=== PATIENT | female | born 1985 | race Caucasian/White ===

== ENCOUNTER 2016-10-30 18:29 | Inpatient (IN) | payer MEDICAID ==
[~2016-10-30] VITALS: Ht 162.6 cm; Wt 84.9 kg
[2016-10-30 19:11] VITALS: Ht 162.6 cm; Wt 84.9 kg
[2016-10-30] MEDS ORDERED: ACETAMINOPHEN 325 MG TAB PO PRN (20:00)
[2016-10-30] MEDS ORDERED: AL HYDROX/MG HYDROX/SIMETH 30 ML CUP PO PRN (20:00)
[2016-10-30 21:09] LABS: ADD SCAN DIFF NO
[2016-10-30 21:14] LABS: BASOPHILS % 0.3 % (0.0-2.0); EOSINOPHILS # 0.1 10^3/ul (0.0-0.5); EOSINOPHILS % 0.8 % (0.0-7.0); HEMATOCRIT 31.4 % (37.0-47.0); HEMOGLOBIN 10.8 g/dl (12.0-16.0); LYMPHOCYTES # 2.3 10^3/ul (0.8-2.9); LYMPHOCYTES % 19.3 % (15.0-51.0); MEAN CORPUSCULAR HEMOGLOBIN 31.3 pg (29.0-33.0); MEAN CORPUSCULAR HGB CONC 34.4 g/dl (32.0-37.0); MEAN PLATELET VOLUME 10.4 fl (7.4-10.4); MONOCYTE # 0.9 10^3/ul (0.3-0.9); MONOCYTES % 7.9 % (0.0-11.0); NEUTROPHIL # 8.4 10^3/ul (1.6-7.5); NEUTROPHILS % 70.5 % (39.0-77.0); PLATELET COUNT 385 10^3/UL (140-415); RED BLOOD COUNT 3.45 10^6/ul (4.20-5.40); RED CELL DISTRIBUTION WIDTH 13.3 % (11.5-14.5); WHITE BLOOD COUNT 11.8 10^3/ul (4.8-10.8)
[2016-10-30 21:19] LABS: ADD UMIC YES; UR ASCORBIC ACID NEGATIVE (NEGATIVE); UR BACTERIA FEW /HPF (NONE SEEN); UR BILIRUBIN (Dip) NEGATIVE (NEGATIVE); UR BLOOD (Dip) NEGATIVE (NEGATIVE); UR CLARITY CLOUDY (CLEAR); UR COLOR AMBER (YELLOW); UR GLUCOSE (Dip) NEGATIVE (NEGATIVE); UR KETONES (Dip) NEGATIVE (NEGATIVE); UR LEUKOCYTE ESTERASE (Dip) 3+ Leu/ul (NEGATIVE); UR MUCUS MANY /HPF (NONE SEEN); UR NITRITE (Dip) POSITIVE (NEGATIVE); UR RBC 8 /HPF (0-5); UR SPECIFIC GRAVITY (Dip) 1.023 (1.003-1.030); UR SQUAMOUS EPITHELIAL CELL FEW /HPF (FEW); UR TOTAL PROTEIN (Dip) 1+ mg/dl (NEGATIVE); UR UROBILINOGEN (Dip) 1+ mg/dL (NEGATIVE); UR WBC CLUMPS FEW /HPF (NONE SEEN)
[2016-10-30 21:30] LABS: INR 1.05; PROTIME 13.7 Sec (12.2-14.2); PT RATIO 1.1
[2016-10-30 21:31] LABS: PARTIAL THROMBOPLASTIN TIME 27.4 Sec (25.0-35.0)
--- NOTE | 2016-10-30 21:31 | RADRPT ---
PROCEDURE: Obstetrical ultrasound. CLINICAL INDICATION: , evaluation. Pelvic pain. TECHNIQUE: Transabdominal sonographic images of the pelvis are obtained. COMPARISON: No prior studies are available for comparison. FINDINGS: Single intrauterine gestation. There is a cephalic presentation. Measurements were made in order to determine age. The results are as follows: BPD = 8.25 cm HC = 29.78 cm AC = 30.40 cm FL = 6.24 cm TATO = 18.0 cm Heart rate = 163 beats per minute The placenta is anterior. There is no evidence for an abruption or placenta previa. Ovaries are not visualized. IMPRESSION: Single intrauterine gestation of approximately 33 weeks 2 days by ultrasound criteria. [place] estimated weight = 2216 g; 29 percentile for gestational age of 34 weeks 0 days. RPTAT: AADD .Jean-Claude Dolan MD, Date Time Electronically viewed and signed by .Jean-Claude Dolan MD, MD on 10/30/2016 21:31 .B/
[2016-10-30 21:40] LABS: ALBUMIN/GLOBULIN RATIO 1.6; BILIRUBIN,INDIRECT 0.1 mg/dl (0-1.1); BILIRUBIN,TOTAL 0.1 mg/dl (0.2-1.3); CALCIUM 9.1 mg/dl (8.4-10.2); CREATININE 0.57 mg/dl (0.44-1.00); POTASSIUM 3.6 mmol/L (3.5-5.1); TOTAL PROTEIN 6.5 g/dl (6.1-8.1); URIC ACID 4.2 mg/dl (3.1-7.9)
[2016-10-30 21:55] LABS: FIBRIN SPLIT PRODUCT <10 ug/ml (<10)
[2016-10-30 22:14] LABS: BARBITURATES NEGATIVE (NEGATIVE)
[2016-10-30 22:15] LABS: BENZODIAZEPINES POSITIVE (NEGATIVE)
[2016-10-30 22:16] LABS: CANNABINOIDS NEGATIVE (NEGATIVE); COCAINE NEGATIVE (NEGATIVE); OPIATES NEGATIVE (NEGATIVE)
--- NOTE | 2016-10-30 22:36 | RADRPT ---
PROCEDURE: OB ultrasound for biophysical profile CLINICAL INDICATION: well being, no care. TECHNIQUE: Multiple sonographic images of the pelvis were obtained. Transabdominal view of the gr avid uterus are available for review. The images were reviewed on a PACS workstation. COMPARISON: None FINDINGS: breathing movement = 2/2 tone = 2/2 motion = 2/2 Amniotic fluid = 2/2 TATO = 18.2 cm Single live intrauterine in cephalic presentation with cardiac activity (144 bpm). Anterior placenta, grade 1-2. IMPRESSION: 1. Single viable intrauterine gestation. 2. Biophysical profile = 8/8. 3. TATO = 18.2 cm. RPTAT: HTAR .Julian Lopes MD, Date Time Electronically viewed and signed by .Julian Lopes MD, MD on 10/30/2016 22:36 .R/
[2016-10-31] MEDS ORDERED: LACTATED RINGER'S 500 ML IV ONE (08:30)
[2016-10-31] MEDS: MULTIVIT/MIN/FOLATE/IRON/PREN TAB PO SCH (08:49)
[2016-10-31] MEDS: DOCUSATE SODIUM 100 MG CAP PO SCH (08:49)
--- NOTE | 2016-10-31 09:56 | HP ---
Date/Time of Note Date/Time of Note DATE: 10/31/16 TIME: 09:41 OB - History Hx of Present Free Text/Dictation 31 y.o [id number] who had x2 elective section which was elective was sent from her OB for futher evaluation for PIH at 34w1d with request of multiple lab test includesPIH lab ,basic OB lab, 24hr urine collection for protein and creatinine clearance and 3hr GTT ,NST and BPP and complete OB U/S and drug screen ( results available pos for metamphetamine and benzodiazepine. initial BP was 141/95 f/b 136/91 patient is in sound sleep on my arrival. admitted for futher evaluation Estimated Due Date: Dec 11, 2016 : 10 Para: 2 Spontaneous : 0 Therapeutic : 7 Care: Other Ultrasounds: Other Obstetrical Complications: Gestational Hypertension Medical Complications: Other (pos for metamphetamine and benzodiazepine) Past Family/Social History * Past Medical, Surgical, Family and Obstetric Histories reviewed from chart. Blood Type: Unknown Rubella: unknown RPR/VDRL: Unknown GBS Status: Unknown HBsAG: Unknown OB Admission Exam Vital Signs Vital Signs BP 141/95 P 95 T98 Physical Exam HEENT: WNL Heart: Rhythm Normal Lungs: Clear, Equal Abdomen: WNL Extremities: Normal Reflexes: Other Cervical Dilatation: other Effacement: Other Station: Other Membranes: Intact Amniotic Fluid: Unevaluable Heart Rate: 150's Accelerations: Accelerations Present Decelerations: No Decelerations Varibility: Moderate Contractions on Admission: None Last 72 hours Lab Results CBC & BMP 10/30/16 20:50 Liver Function Test 10/30/16 20:50 Alanine Aminotransferase (ALT/SGPT) 43 Albumin 4.0 Alkaline Phosphatase 150 H Aspartate Amino Transf (AST/SGOT) 67 H Direct Bilirubin 0.00 Total Protein 6.5 OB Assessment/Plan Reason for admission: observation, other (PIH) Other Assessment: [id number] PIH Plan: Other Other plan: all planned OB lab and OB U/S BPP NST RYAN WILCOX MD Oct 31, 2016 09:51
[2016-10-31] MEDS ORDERED: LACTATED RINGER'S 1,000 ML IV SCH (10:00)
--- NOTE | 2016-10-31 12:23 | PN ---
Date/Time of Note Date/Time of Note DATE: 10/31/16 TIME: 12:15 OB Subjective Subjective Subjective patient has been sleeping since she came in , probably using xanax from home. BP intermittently high. we will start her on labetalol patient has no headaches , dizziness nor epigastric pain. sleeping since she was admitted. no leg edema, normal reflexes OB Objective Objective Objective patient is under laboratory testing due to no care HEENT: WNL Heart: Rhythm Normal Lungs: Clear, Equal Abdomen: WNL Extremities: Normal Reflexes: Normal SOFIA ZABALA MD Oct 31, 2016 12:22
[2016-10-31] MEDS: LACTATED RINGER'S 1,000 ML IV SCH ×2 (17:47→20:40)
[2016-10-31] MEDS: LABETALOL 100 MG TAB PO SCH (18:25)
--- NOTE | 2016-10-31 22:56 | CONS ---
Date/Time of Note Date/Time of Note DATE: 10/31/16 TIME: 22:55 Assessment/Plan Assessment/Plan Chief Complaint/Hosp Course This is a 31-year-old female was admitted to the [employer] [facility] for PIH: #1 polysubstance abuse: At the current time patient does appear anxious though her vital signs are within acceptable values and she is overall stable. With her previous history of methamphetamine use will continue to monitor her for withdrawal symptoms. I do feel that part of her anxiety at this time could be related partially to cigarettes and Xanax use. At the current time will provide her a nicotine patch daily. Patient has been on a benzo taper which is being controlled by her outpatient physician as per the patient. Weighing the risks and benefits of taking Xanax, I would like to continue her on her daily Xanax 0.5 mg p.o. daily medication as an abrupt cessation of the medication could result in seizures and other deleterious effects which could harm her and her baby. The patient is also understanding and agreeable to this and she is going to follow-up with her primary doctor as an outpatient for continued management of this taper. #2 PIH: Continue to monitor blood pressures. Continue labetalol. Further treatment strategy as per the recommendations by [facility]. Problems: Consultation Date/Type/Reason Admit Date/Time Oct 30, 2016 at 19:40 Type of Consultation: medicine Reason for Consultation polysubstance abuse Hx of Present Illness This is a 31-year-old [id number] with 2 past elective sections was sent from her OB for futher evaluation for PIH at 34w1d. She is being evaluated by [facility] with further lab work as she has poor labs. Patient has a history of drug abuse and a urine drug screen came back positive for benzos as well as methamphetamine. Patient reports that she did use methamphetamine 3 days ago but does not use it regularly. She does state that she uses Xanax daily. She has been using Xanax for approximately 3 months as a treatment for her previous alcohol abuse. Patient was a heavy alcohol drinker and was hospitalized back in July and started on a benzo taper regimen. Currently she is taking 1 tablet Xanax 0.5 mg p.o. daily. Patient also reports that she smokes 5 cigarettes a day and has done that for the past 15 years. At the current time she is denying any sort of chest pain or shortness of breath. She does state that she is anxious and she wants to go smoke a cigarette. Allergies: NKDA Medications: See MAR Const: As per HPI Eyes : No pain discharge or redness or change in visual acuity ENT: No pain, sore throat, congestion, congestion, dysphagia or discharge Respiratory: No shortness of breath, cough, sputum, wheezing, or pleuritic pain Cardiovascular: No chest pain, palpitation, PND, or edema GI : no change in appetite, abdominal pain, nausea, vomiting, diarrhea, constipation, or change in the color his stool Genitourinary: No dysuria, hematuria, flank pain , discharge or CVA tenderness Musculoskeletal: No joint pain, back pain, neck pain, restricted range of motion in neck or joints Skin: No rash, bruising or hives Neuro: No headache, dizziness, syncope, seizure, focal weakness Endocrine: No polyuria, polydipsia, temperature intolerance Psych: No hallucinations no suicidal ideation please see HPI for additional information. Past Medical History History of blood clot, alcohol abuse Past Surgical History 2 Family History Significant Family History: no pertinent family hx Social History Alcohol Use: none Smoking Status: Current every day smoker (5 cigarettes a day 15 years) Drug Use: other (She last used methamphetamine 3 days ago but has not been using it on a regular basis. Daily Xanax user.) Exam/Review of Systems Exam General: Patient is laying in bed in no acute distress though she does appear anxious and when questioned she states that she wants to go smoke a cigarette. HEENT: Atraumatic, normocephalic. The pupils are equal, round and reactive. Extraocular motor are intact Neck: Supple with full range of motion. No rigidity or meningismus Chest: Nontender Lungs: Clear to auscultation bilaterally no crackles rales or wheezing Heart: Normal S1-S2, Regular rhythm and rate. No appreciable murmur. Abdomen: Soft , nontender, nondistended , bowel sounds are present. No guarding no rebound tenderness , No masses or organomegaly. No costovertebral temporal angle mass Extremities: Normal to inspection, no edema no cyanosis Neurologic: Normal mental status, speech normal, cranial nerves II through XII are intact, motor and sensory are intact, no focal weakness no tremors noted Skin: Diaphoresis noted to the face Psych: No hallucinations no suicidal ideation. Patient states that she is anxious and wants to smoke cigarettes. No tremors noted Results Result Diagram: 10/30/16204910/30/162049 Results 24 hrs Laboratory Tests Test 10/31/16 06:00 10/31/16 09:07 Serum Fasting Glucose Urine Urine Fasting Glucose Hepatitis B Surface Antigen NEGATIVE Hepatitis B Surface Antibody NEGATIVE Medications Medications Current Medications Prenat Multivit/ [place]/Iron/Folic Ac ( S) 1 tab DAILY PO Last administered on 10/31/16 08:49; Admin Dose 1 TAB; Start 10/31/16 at 09:00 Docusate Sodium (Colace) 100 mg DAILY PO Last administered on 10/31/16 08:49; Admin Dose 100 MG; Start 10/31/16 at 09:00 Acetaminophen (Tylenol Tab) 650 mg Q4H PRN PO PAIN AND OR ELEVATED TEMP; Start 10/30/16 at 20:00 Al Hydrox/Mg Hydrox/Simethicone (Mag-Al Plus) 30 ml Q6H PRN PO GASTROINTESTINAL UPSET; Start 10/30/16 at 20:00 Labetalol HCl 100 mg 100 mg BID PO Last administered on 10/31/16 18:25; Admin Dose 100 MG; Start 10/31/16 at 18:30 Lactated Ringer's (Lr) 1,000 ml @ 150 mls/hr Q6H40M IV Last administered on 17:47; Admin Dose 150 MLS/HR; Start 10/31/16 at 14:00; Stop 11/01/16 at 12:00 TIMA CLAIRE Oct 31, 2016 22:56
[2016-11-01] MEDS: ALPRAZOLAM 0.5 MG TAB PO SCH ×2 (00:25→09:21)
[2016-11-01] MEDS: NICOTINE (14 MG/24 HR) PATCH TRANSDERM SCH ×2 (01:16→09:22)
[2016-11-01] MEDS: LACTATED RINGER'S 1,000 ML IV SCH (03:04)
[2016-11-01] MEDS: MULTIVIT/MIN/FOLATE/IRON/PREN TAB PO SCH (09:21)
[2016-11-01] MEDS: LABETALOL 100 MG TAB PO SCH (09:21)
[2016-11-01] MEDS: DOCUSATE SODIUM 100 MG CAP PO SCH (09:21)
[2016-11-01 10:08] LABS: SCRET 0.62 mg/dl (0.44-1.00)
[2016-11-01] MEDS ORDERED: CEPHALEXIN 500 MG CAP PO SCH (12:00)
[2016-11-01] MEDS ORDERED: CEFTRIAXONE 1 GM INJ IM ONE (12:00)
--- NOTE | 2016-11-01 12:11 | PN ---
Date/Time of Note Date/Time of Note DATE: 11/01/16 TIME: 11:57 OB Subjective Subjective Subjective OB progress by This patient has been evaluated for preeclampsia which is mild due to proteinuria over 500. Bood pressure had been fluctuating up and down and she was placed on labetalol 100 mg twice daily that keeps her blood pressure mostly controlled. She has no headaches dizziness epigastric pain nor leg edema, normal reflexes Her urine culture was showing a UTI , E. coli, we started her on Rocephin and Keflex by now and we will keep this patient until tomorrow until the sensitivity of the urine culture comes back, this patient is adamant to go home and do some stuff with her children and she is signing herself AMA , she will come back she states today. We are awaiting the other test results and possibly be discharged in the morning , she will be discharged tomorrow most likely after the sensitivity of the urine collection and she will have to come back for NST BPP twice a week She has been advised of the risks that she is taking by taking amphetamines and the risk of having a stroke or due to high blood pressure ,since amphetamines also increase her blood pressure at the same time with the preeclampsia. At this moment she is mildly preeclamptic, the liver enzymes were almost normal, the platelets were normal and the patient has no symptoms of preeclampsia right now. She was given advice of the signs for which she needs to come back to the hospital immediately for and she states she understands hoew serious it is .She is to see me in the office in a week after I see her tomorrow and discharge her tomorrow and come back to the hospital twice a week this advice also was given by Dr. Irving who had a long discussion with the patient. she promised she is not going to take amphetamines anymore and she will be compliant until the baby is born. The rest of the examination is stable, the baby's heart tones and NST BPP have been normal. SOFIA ZABALA MD Nov 01, 2016 12:11
== END 2016-11-01 12:03 | disposition left against medical advice (07) | DRG 781 ==
LOC: L-D 18:29 → OBT 18:29 → L-D 19:03 → OBG 19:40 → OBT 19:40
PROVIDERS: ADMIT Obstetrics & Gynecology; ATTEND Obstetrics & Gynecology
DX: O14.03 Mild to moderate pre-eclampsia, third trimester (principal); O23.43 Unspecified infection of urinary tract in pregnancy, third trimester; O99.323 Drug use complicating pregnancy, third trimester; F15.90 Other stimulant use, unspecified, uncomplicated; F13.90 Sedative, hypnotic, or anxiolytic use, unspecified, uncomplicated; O34.219 Maternal care for unspecified type scar from previous cesarean delivery; B96.20 Unspecified Escherichia coli [E. coli] as the cause of diseases classified elsewhere; O99.333 Smoking (tobacco) complicating pregnancy, third trimester; F17.210 Nicotine dependence, cigarettes, uncomplicated; Z3A.34 34 weeks gestation of pregnancy
CPT/HCPCS: 76815; 76818; 80053; 80069; 80076; 80307; 81001; 82565; 82575; 82951; 83615; 84156; 84560; 85025; 85362; 85384; 85610; 85730; 86592; 86706; 86762; 86803; 86850; 86900; 86901; 87086; 87340; 87536; J0696; J7120

== ENCOUNTER 2016-11-01 19:52 | Outpatient (CLI) | payer MEDICAID ==
--- NOTE | 2016-11-01 21:10 | PN ---
Triage Information Date/Time 11/01/16 , 9pm Weeks of Gestation 34 : 10 Para: 2 Diabetes: none Additional information patient is pos for metamphetamine and benzodiazepines, had elevated BP's earlier , 24 hr urine protein of 500; is being treated for UTI with Keflex, pulse 126 Objective 130/74,126,20,99.2 Heart Rate Comments 160's; minimal to moderate variability; pos accel; no decel; no ctx Contractions: None Assessment/Plan 31 yo P2 @ 34 wks - elevated BP's; 24 hr urine protein 500, BP nml now - elevated pulse, utox earlier positive for metamphetamines and benzodiazepines - UTI, on Keflex - despite recommendations for admission and for sono to evaluate fetus, patient decided to leave AMA; she refused to wait for sono, despite being advised that and maternal status cannot be reassured. ROSIE CHOI MD Nov 01, 2016 21:10
--- NOTE | 2016-11-02 04:35 | TRIAGE ---
OB Triage Datetime Report Generated by CPN: 11/02/2016 04:35 Datetime: 11/01/2016 23:57 Stage of : Antepartum Datetime: 11/01/2016 19:52 Time of Arrival: 11/01/2016 19:52 EGA: 34.2 Arrived By: Ambulatory Chief Complaint: NONE. PT HAD GONE AMA AT NOON TODAY TO TAKE CHILD TO CAMP. STATES SHE WAS INSTRUC CARLYN TO RETURN FOR URINE TEST RESULT. PT VERY UPSET AT BEING HERE Movement: Present Contractions: Denies/Absent Rupture of Membranes: Denies Vaginal Bleeding: None Vaginal Discharge: Denies Recent Sexual Intercouse: Denies Abdominal Trauma: Not Applicable Additional Patient Complaints: PT AGREED TO ALLOW RN TO PLACE PT ON MONITOR. B/P 130/74 WITH PILSE OF 126 Time Provider Notified: 11/01/2016 20:17 Provider Notified: VJ Initial Plan: DR ZABALA AWARE PT DOES NOT WISH TO STAY ORDERS FOR AN NST AND IF B/P ARE GOOD AND STRIP REACTIVE PT MAY BE DISCHARGED HOME. REPORT TO LABORIST. AT BEDSIDE TO REVIEW STRIP. EXPLAINED RISKS OF NOT ALLOWING A FULL EVAL UATION. DR CHOI WANTED TO GET A BPP TO ASSURE WELL BEING. PT DID NOT WISH TO WAIT FOR ULTRA SOUND AND CHOSE TO SIGN OUT AMA TRIED TO CHANGE PTS MIND AND AT LEAST ALLOW THE ULTRA SOUND POIN TING OUT THAT HEART TONES WERE NOT REACTIVE AND THE A PULSE RATE OF 126 WAS NOT NORMAL WELL B/P BEING BORDERLINE Datetime: 11/01/2016 11:15 Labor Evaluation Frequency: X1/HR Monitor Mode: External Duration (sec)2399: 50 Quality: Mild Pattern: Normal: <= 5 Contractions in 10 Minutes Resting Tone [place]: Relaxed Heart Rate FHR Baseline Rate: 140 Monitor Mode: External US FHR Baseline Changes: No Baseline Change Variability: Moderate 6-25 bpm Accelerations: 15X15 Decelerations: None Category: Category I Datetime: 11/01/2016 11:00 Labor Evaluation Frequency: 0 Monitor Mode: External Pattern: Normal: <= 5 Contractions in 10 Minutes Resting Tone [place]: Relaxed Heart Rate FHR Baseline Rate: 140 Monitor Mode: External US FHR Baseline Changes: No Baseline Change Variability: Moderate 6-25 bpm Accelerations: 15X15 Decelerations: Variable Category: Category I Datetime: 11/01/2016 10:00 Labor Evaluation Frequency: 0 Monitor Mode: External Pattern: Normal: <= 5 Contractions in 10 Minutes Resting Tone [place]: Relaxed Heart Rate FHR Baseline Rate: 140 Monitor Mode: External US FHR Baseline Changes: No Baseline Change Variability: Moderate 6-25 bpm Accelerations: 15X15 Decelerations: None Category: Category I Datetime: 11/01/2016 08:06 Assessment Type: Ongoing Assessment Maternal Assessment Level of Consciousness: Fully Conscious DTR's/Clonus: DTRs 2+; No Clonus Headache: Denies Blurred Vision: No Respiratory Effort: Unlabored; Regular Rhythm; Equal Expansion Breath Sounds, Left: Clear and Equal Breath Sounds, Right: Clear and Equal Nausea/Vomiting: Denies RUQ Epigastric Pain: Denies Lower Extremities Edema: None Degree: None Upper Extremities Edema: None Degree: None Facial Edema: None Temperature Route: Oral Bedside Blood Glucose: 92 Fall Risk Assessment History of Falling: (0) No Secondary Diagnosis: (0) No Ambulatory Aid: (0) Bedrest/Nurse Assist Gait: (0) Normal/Bedrest/Immobile Mental Status: (0) Oriented to Own Ability Pain Presence: None/Denies Datetime: 11/01/2016 07:20 Stage of : Antepartum Datetime: 11/01/2016 06:55 Stage of : Antepartum Contraction Comments: PT DENIES CRAMPING Comments: PT STATES + FM Pain Presence: None/Denies Pain Type: N/A Datetime: 11/01/2016 05:10 Stage of : OB Triage Temperature Route: Oral Contraction Comments: PT DENIES CRAMPING Comments: PT STATES + FM Pain Presence: None/Denies Pain Type: N/A Datetime: 11/01/2016 04:03 Stage of : Antepartum Datetime: 11/01/2016 03:04 Stage of : Antepartum Pain Presence: None/Denies Pain Type: N/A Pain Assessment Comments: PT SLEEPING BUT EASLIY AROUSED. Datetime: 11/01/2016 01:16 Stage of : Antepartum Pain Presence: None/Denies Pain Type: N/A Pain Assessment Comments: PT SLEEPING WITH EVEN UNLABORED BREATHING Datetime: 11/01/2016 00:25 Stage of : Antepartum Temperature Route: Oral Contraction Comments: PT DENIES CRAMPING Comments: PT STATES + FM Pain Presence: None/Denies Pain Type: N/A Datetime: 10/31/2016 21:30 Stage of : Antepartum Labor Evaluation Frequency: NONE Monitor Mode: External Resting Tone [place]: Relaxed Heart Rate FHR Baseline Rate: 155 Monitor Mode: External US Variability: Moderate 6-25 bpm Accelerations: 15X15 Decelerations: None Datetime: 10/31/2016 20:30 Stage of : Antepartum Heart Rate FHR Baseline Rate: 155 Monitor Mode: External US Variability: Moderate 6-25 bpm Accelerations: 15X15 Decelerations: None Datetime: 10/31/2016 19:34 Stage of : Antepartum Assessment Type: Ongoing Assessment Maternal Assessment Level of Consciousness: Fully Conscious DTR's/Clonus: DTRs 2+; No Clonus Headache: Denies Blurred Vision: No Respiratory Effort: Unlabored; Regular Rhythm; Equal Expansion Breath Sounds, Left: Clear and Equal Breath Sounds, Right: Clear and Equal Nausea/Vomiting: Denies RUQ Epigastric Pain: Denies Lower Extremities Edema: None Degree: None Upper Extremities Edema: None Degree: None Facial Edema: None Temperature Route: Oral Fall Risk Assessment History of Falling: (0) No Secondary Diagnosis: (0) No Ambulatory Aid: (0) Bedrest/Nurse Assist IV Therapy: (20) Yes Gait: (0) Normal/Bedrest/Immobile Mental Status: (0) Oriented to Own Ability Fall Score: 20 Fall Risk Score Definition: No Risk: No action required Pain Assessment Pain Scale: 0 Pain Presence: None/Denies Pain Type: N/A Pain Goal: 3 Datetime: 10/31/2016 19:30 Contraction Comments: TOCO APPLIED Comments: US APPLIED Datetime: 10/31/2016 18:25 Maternal Assessment Level of Consciousness: Fully Conscious DTR's/Clonus: DTRs 2+ Headache: Denies Blurred Vision: No Nausea/Vomiting: Denies RUQ Epigastric Pain: Denies Facial Edema: None Comments: PT SAYS SHE FEELS THE BABY MOVING Datetime: 10/31/2016 17:56 Comments: HOSPITALIST CALLED TO CONFIRM THE PT Datetime: 10/31/2016 17:12 Stage of : Antepartum Datetime: 10/31/2016 15:53 Stage of : Antepartum Datetime: 10/31/2016 15:26 Maternal Assessment Level of Consciousness: Fully Conscious DTR's/Clonus: DTRs 2+ Headache: Denies Breath Sounds, Left: Clear and Equal Breath Sounds, Right: Clear and Equal Nausea/Vomiting: Denies RUQ Epigastric Pain: Denies Datetime: 10/31/2016 13:32 Maternal Assessment Level of Consciousness: Fully Conscious DTR's/Clonus: DTRs 2+ Headache: Denies Breath Sounds, Left: Clear and Equal Breath Sounds, Right: Clear and Equal Nausea/Vomiting: Denies RUQ Epigastric Pain: Denies Datetime: 10/31/2016 11:49 Stage of : Antepartum Maternal Assessment Level of Consciousness: Fully Conscious DTR's/Clonus: DTRs 2+ Headache: Denies Breath Sounds, Left: Clear and Equal Breath Sounds, Right: Clear and Equal Nausea/Vomiting: Denies RUQ Epigastric Pain: Denies Datetime: 10/31/2016 09:59 Labor Evaluation Frequency: NONE Monitor Mode: External Pattern: Normal: <= 5 Contractions in 10 Minutes Resting Tone [place]: Relaxed Heart Rate FHR Baseline Rate: 135 FHR Baseline Changes: No Baseline Change Variability: Moderate 6-25 bpm Accelerations: 15X15 Decelerations: None Category: Category I Pain Presence: None/Denies Datetime: 10/31/2016 09:23 Stage of : Antepartum Maternal Assessment Level of Consciousness: Fully Conscious DTR's/Clonus: DTRs 2+ Headache: Denies Breath Sounds, Left: Clear and Equal Breath Sounds, Right: Clear and Equal Nausea/Vomiting: Denies RUQ Epigastric Pain: Denies Comments: NST APPLIED Datetime: 10/31/2016 07:25 Assessment Type: Ongoing Assessment Maternal Assessment Level of Consciousness: Fully Conscious DTR's/Clonus: DTRs 2+; No Clonus Headache: Denies Blurred Vision: No Respiratory Effort: Unlabored; Regular Rhythm; Equal Expansion Breath Sounds, Left: Clear and Equal Breath Sounds, Right: Clear and Equal Nausea/Vomiting: Denies RUQ Epigastric Pain: Denies Lower Extremities Edema: Bilateral Lower Extremities Degree: 1+ Upper Extremities Edema: Bilateral Upper Extremities Degree: 1+ Facial Edema: None Fall Risk Assessment History of Falling: (0) No Secondary Diagnosis: (0) No Ambulatory Aid: (0) Bedrest/Nurse Assist IV Therapy: (0) No Gait: (0) Normal/Bedrest/Immobile Mental Status: (0) Oriented to Own Ability Fall Score: 0 Fall Risk Score Definition: No Risk: No action required Datetime: 10/31/2016 06:49 Stage of : Antepartum Pain Assessment Pain Scale: 0 Pain Presence: None/Denies Pain Type: N/A Pain Goal: 0 Datetime: 10/31/2016 05:49 Stage of : Antepartum Pain Assessment Pain Scale: 0 Pain Presence: None/Denies Pain Type: N/A Pain Goal: 0 Datetime: 10/31/2016 05:00 Maternal Assessment Level of Consciousness: Fully Conscious DTR's/Clonus: DTRs 2+; No Clonus Headache: Denies Blurred Vision: No Breath Sounds, Left: Clear and Equal Breath Sounds, Right: Clear and Equal Nausea/Vomiting: Denies RUQ Epigastric Pain: Denies Facial Edema: None Datetime: 10/31/2016 04:49 Pain Assessment Pain Scale: 0 Pain Presence: None/Denies Pain Goal: 0 Datetime: 10/31/2016 03:49 Stage of : Antepartum Datetime: 10/31/2016 03:00 Maternal Assessment Level of Consciousness: Fully Conscious DTR's/Clonus: DTRs 2+; No Clonus Headache: Denies Blurred Vision: No Breath Sounds, Left: Clear and Equal Breath Sounds, Right: Clear and Equal Nausea/Vomiting: Denies RUQ Epigastric Pain: Denies Facial Edema: None Datetime: 10/31/2016 02:49 Stage of : Antepartum Datetime: 10/31/2016 01:49 Stage of : Antepartum Pain Assessment Pain Scale: 0 Pain Presence: None/Denies Pain Type: N/A Pain Goal: 0 Datetime: 10/31/2016 01:00 Maternal Assessment Level of Consciousness: Fully Conscious DTR's/Clonus: DTRs 2+; No Clonus Headache: Denies Blurred Vision: No Breath Sounds, Left: Clear and Equal Breath Sounds, Right: Clear and Equal Nausea/Vomiting: Denies RUQ Epigastric Pain: Denies Facial Edema: None Datetime: 10/31/2016 00:49 Stage of : Antepartum Pain Assessment Pain Scale: 0 Pain Presence: None/Denies Pain Type: N/A Pain Goal: 0 Datetime: 10/30/2016 23:49 Stage of : Antepartum Pain Assessment Pain Scale: 0 Pain Presence: None/Denies Pain Type: N/A Pain Goal: 0 Datetime: 10/30/2016 23:00 Maternal Assessment Level of Consciousness: Fully Conscious DTR's/Clonus: DTRs 2+; No Clonus Headache: Denies Blurred Vision: No Breath Sounds, Left: Clear and Equal Breath Sounds, Right: Clear and Equal Nausea/Vomiting: Denies RUQ Epigastric Pain: Denies Facial Edema: None Datetime: 10/30/2016 22:54 Labor Evaluation Frequency: irregular Monitor Mode: External Duration (sec)2399: 40-60 Quality: Mild Pattern: Normal: <= 5 Contractions in 10 Minutes Resting Tone [place]: Relaxed Heart Rate FHR Baseline Rate: 145 Variability: Moderate 6-25 bpm Accelerations: 15X15 Decelerations: None Category: Category I Comments: off Comments: NST PER MD ORDERS Pain Assessment Pain Scale: 0 Pain Presence: None/Denies Pain Type: N/A Vaginal Exam Membrane Status: Intact Datetime: 10/30/2016 22:49 Stage of : Antepartum Pain Assessment Pain Scale: 0 Pain Presence: None/Denies Pain Goal: 0 Datetime: 10/30/2016 22:00 Labor Evaluation Frequency: irritability Monitor Mode: Internal Quality: Mild Pattern: Normal: <= 5 Contractions in 10 Minutes Resting Tone [place]: Relaxed Heart Rate FHR Baseline Rate: 150 Monitor Mode: External US Variability: Moderate 6-25 bpm Accelerations: 10X10 Decelerations: None Category: Category I Pain Assessment Pain Scale: 0 Pain Presence: None/Denies Pain Type: N/A Datetime: 10/30/2016 21:52 Stage of : Antepartum Pain Assessment Pain Scale: 0 Pain Presence: None/Denies Pain Goal: 0 Datetime: 10/30/2016 21:17 Time of Arrival: 10/30/2016 20:00 EGA: 34.0 Arrived By: Ambulatory Datetime: 10/30/2016 21:00 Labor Evaluation Frequency: irritability Monitor Mode: External Quality: Mild Pattern: Normal: <= 5 Contractions in 10 Minutes Heart Rate FHR Baseline Rate: 150 Monitor Mode: External US Variability: Moderate 6-25 bpm Accelerations: 15X15 Decelerations: None Category: Category I Pain Assessment Pain Scale: 0 Pain Presence: None/Denies Pain Type: N/A Vaginal Exam Membrane Status: Intact Datetime: 10/30/2016 20:32 Comments: US tech at bedside Datetime: 10/30/2016 20:26 Stage of : Antepartum Datetime: 10/30/2016 20:19 Stage of : Antepartum Datetime: 10/30/2016 20:00 Assessment Type: Admission Assessment Vaginal Bleeding: None Maternal Assessment Level of Consciousness: Fully Conscious DTR's/Clonus: DTRs 2+; No Clonus Headache: Denies Blurred Vision: No Respiratory Effort: Unlabored; Regular Rhythm; Equal Expansion Breath Sounds, Left: Clear and Equal Breath Sounds, Right: Clear and Equal Nausea/Vomiting: Denies RUQ Epigastric Pain: Denies Lower Extremities Edema: Bilateral Lower Extremities Degree: 1+ Upper Extremities Edema: Bilateral Upper Extremities Degree: 1+ Facial Edema: None Fall Risk Assessment History of Falling: (0) No Secondary Diagnosis: (0) No Ambulatory Aid: (0) Bedrest/Nurse Assist IV Therapy: (0) No Gait: (0) Normal/Bedrest/Immobile Mental Status: (0) Oriented to Own Ability Fall Score: 0 Fall Risk Score Definition: No Risk: No action required Pain Assessment Pain Scale: 0 Pain Presence: None/Denies Pain Type: N/A Datetime: 10/30/2016 19:36 Labor Evaluation Frequency: irritability Monitor Mode: External Duration (sec)2399: 20-40 Quality: Mild Pattern: Normal: <= 5 Contractions in 10 Minutes Heart Rate FHR Baseline Rate: 150 Variability: Moderate 6-25 bpm Accelerations: 15X15 Decelerations: None Category: Category I Pain Assessment Pain Scale: 0 Pain Presence: None/Denies Pain Type: N/A Vaginal Exam Membrane Status: Intact
== END 2016-11-01 20:53 | disposition left against medical advice (07) ==
LOC: OBT 19:52 → L-D 19:53 → OBT 20:53
PROVIDERS: ATTEND Obstetrics & Gynecology
DX: O23.43 Unspecified infection of urinary tract in pregnancy, third trimester (principal); O99.324 Drug use complicating childbirth; F15.10 Other stimulant abuse, uncomplicated; F13.10 Sedative, hypnotic or anxiolytic abuse, uncomplicated; O16.3 Unspecified maternal hypertension, third trimester; Z3A.34 34 weeks gestation of pregnancy; Z53.21 Procedure and treatment not carried out due to patient leaving prior to being seen by health care provider
CPT/HCPCS: G0463

== ENCOUNTER 2016-12-06 17:15 | Inpatient (IN) | payer MEDICAID, OTHER ==
[~2016-12-06] VITALS: Ht 162.6 cm; Wt 89.9 kg
[2016-12-06] MEDS ORDERED: LACTATED RINGER'S 1,000 ML IV ONE (20:08)
[2016-12-06 20:10] VITALS: Ht 162.6 cm; Wt 89.9 kg
[2016-12-06 20:11] VITALS: BP 139/85; PULSE 117; RESP 20
[2016-12-06] MEDS ORDERED: OXYTOCIN 30 UNITS/LR 500 ML IV PRN ×2 (20:30→23:30)
[2016-12-06] MEDS ORDERED: MISOPROSTOL 200 MCG TAB PR PRN ×2 (20:30→23:30)
[2016-12-06] MEDS ORDERED: METHYLERGONOVINE 0.2 MG INJ IM PRN ×2 (20:30→23:30)
[2016-12-06] MEDS ORDERED: ONDANSETRON 4 MG INJ IV ONE (20:30)
[2016-12-06] MEDS ORDERED: CEFAZOLIN 2 GM/50 ML (PMX) 50 ML IV SCH (20:30)
[2016-12-06] MEDS ORDERED: OXYTOCIN 30 UNITS/LR 500 ML IV SCH (20:30)
[2016-12-06] MEDS ORDERED: CITRIC ACID/NA CITRATE 30 ML CUP PO ONE (20:30)
[2016-12-06] MEDS ORDERED: CARBOPROST 250 MCG INJ IM PRN ×2 (20:30→23:30)
[2016-12-06 20:56] LABS: BASOPHIL # 0.1 10^3/ul (0.0-0.1); BASOPHILS % 0.4 % (0.0-2.0); EOSINOPHILS # 0.1 10^3/ul (0.0-0.5); EOSINOPHILS % 1.2 % (0.0-7.0); HEMATOCRIT 30.4 % (37.0-47.0); HEMOGLOBIN 10.5 g/dl (12.0-16.0); LYMPHOCYTES # 2.1 10^3/ul (0.8-2.9); LYMPHOCYTES % 18.8 % (15.0-51.0); MEAN CORPUSCULAR HEMOGLOBIN 31.7 pg (29.0-33.0); MEAN CORPUSCULAR HGB CONC 34.5 g/dl (32.0-37.0); MEAN CORPUSCULAR VOLUME 91.8 fl (82.0-101.0); MEAN PLATELET VOLUME 10.9 fl (7.4-10.4); MONOCYTE # 0.8 10^3/ul (0.3-0.9); MONOCYTES % 7.2 % (0.0-11.0); NEUTROPHILS % 71.1 % (39.0-77.0); PLATELET COUNT 393 10^3/UL (140-415); RED BLOOD COUNT 3.31 10^6/ul (4.20-5.40); RED CELL DISTRIBUTION WIDTH 13.9 % (11.5-14.5); WHITE BLOOD COUNT 11.3 10^3/ul (4.8-10.8)
[2016-12-06 21:14] LABS: INR 0.95; PROTIME 12.7 Sec (12.2-14.2)
[2016-12-06 21:15] LABS: PARTIAL THROMBOPLASTIN TIME 26.9 Sec (25.0-35.0)
[2016-12-06 21:19] LABS: ALBUMIN 3.5 g/dl (3.3-4.9); ALBUMIN/GLOBULIN RATIO 1.09; CALCIUM 9.6 mg/dl (8.4-10.2); CREATININE 0.51 mg/dl (0.44-1.00); POTASSIUM 3.4 mmol/L (3.5-5.1); TOTAL PROTEIN 6.7 g/dl (6.1-8.1); URIC ACID 4.2 mg/dl (3.1-7.9)
[2016-12-06] MEDS ORDERED: LACTATED RINGER'S 1,000 ML IV SCH (21:48)
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
[2016-12-06] MEDS ORDERED: FENTAnyl 50 MCG/ML VIAL ONE (23:19)
[2016-12-06] MEDS ORDERED: morphine SULFATE/PF (10 MG/10 ML) INJ ONE (23:19)
[2016-12-06] MEDS: CEFAZOLIN 2 GM/50 ML (PMX) 50 ML IV SCH (23:26)
[2016-12-06] MEDS ORDERED: METHYLERGONOVINE 0.2 MG TAB PO PRN (23:30)
[2016-12-06] MEDS ORDERED: NA PHOSPHATE/BIPHOS 133 ML ENEMA PR PRN (23:30)
[2016-12-06] MEDS ORDERED: LANOLIN 7 GM TUBE TOP PRN (23:30)
[2016-12-06] MEDS ORDERED: OXYTOCIN 30 UNITS/LR 500 ML IV ONE (23:31)
--- NOTE | 2016-12-06 23:32 | OPR ---
Date/Time of Note Date/Time of Note DATE: 12/06/16 TIME: 23:28 Operative Report Preoperative Diagnosis TERM NON REASSURING FHT NON REACTIVE NST BPP 10/11 ETHANOL ABUSE CHRONIC SMOKER XANAX USAGE DURING REPEAT C/S Postoperative Diagnosis SAME Operation Performed repeat low segment transverse c/s lysis of adhesions Surgeon: SOFIA ZABALA MD podiatry assistant: RYAN WILCOX MD Anesthesia: spinal Anesthesiologist: FERNANDO REINOSO MD Estimated Blood Loss: other Complications: None Pt Condition Post Procedure: stable Disposition: PACU SOFIA ZABALA MD Dec 06, 2016 23:32
[2016-12-06] MEDS ORDERED: METOCLOPRAMIDE 10 MG INJ ONE (23:33)
[2016-12-06] MEDS ORDERED: PHENYLephrine (100 MCG/ML) 5ML SYG ONE (23:37)
[2016-12-07] MEDS ORDERED: PHENYLephrine (100 MCG/ML) 5ML SYG ONE (00:02)
[2016-12-07] MEDS ORDERED: VASOPRESSIN 20 UNITS INJ ONE (00:19)
[2016-12-07] MEDS ORDERED: NALBUPHINE HCL (10 MG/1 ML) INJ IV PRN (00:30)
[2016-12-07] MEDS ORDERED: ONDANSETRON 4 MG INJ IV PRN (00:30)
[2016-12-07] MEDS ORDERED: DIPHENHYDRAMINE 50 MG INJ IV PRN (00:30)
[2016-12-07] MEDS ORDERED: TRIMETHOBENZAMIDE 100 MG/ML VIAL IM PRN (00:30)
[2016-12-07] MEDS ORDERED: NALOXONE (0.4 MG/ML) INJ IV PRN (00:30)
[2016-12-07] MEDS ORDERED: ZOLPIDEM 5 MG TAB PO PRN (00:30)
[2016-12-07] MEDS ORDERED: HYDROmorphONE 1 MG/ML SYG IV PRN ×2 (00:30)
[2016-12-07 00:54] LABS: Arterial Cord Blood pCO2 58.9 mmHG (25-50); CBA Base Excess -2.4 mmol/L; CBA Total Hemglobin 13.8 g/dl; Fraction OxyHgb Cord Arterial 8.7 %; MODE ROOM AIR; MetHgb Cord Arterial 2.8 %; Sample Type CBA
[2016-12-07 00:56] LABS: CBV Base Excess -2.7 mmol/L; CBV COHb 3.2 %; CBV Total Hemglobin 13.4 g/dl; Fraction OxyHgb Cord Venous 8.8 %; MODE ROOM AIR; MetHgb Cord Venous 2.8 %; Sample Type CBV
[2016-12-07 02:21] LABS: BARBITURATES Negative (NEGATIVE)
[2016-12-07 02:22] LABS: BENZODIAZEPINES Positive (NEGATIVE); CANNABINOIDS Negative (NEGATIVE); COCAINE Negative (NEGATIVE); OPIATES Negative (NEGATIVE)
[2016-12-07] MEDS: KETOROLAC 30 MG INJ IV PRN ×2 (02:45→17:42)
[2016-12-07] MEDS: OXYTOCIN 30 UNITS/LR 500 ML IV SCH ×2 (03:00→03:21)
[2016-12-07 03:10] VITALS: BP 141/86; PULSE 101; RESP 18
--- NOTE | 2016-12-07 03:34 | OPR ---
DATE OF OPERATION: 12/06/2016 PREOPERATIVE DIAGNOSES: 1. Term . 2. Chronic alcoholism. 3. Chronic usage of Xanax, 4. Chronic smoking. 5. Nonreactive nonstress test. 6. Biophysical profile 6 out of 8 and non-reassuring heart tones. 7. Previous section. POSTOPERATIVE DIAGNOSES: 1. Term . 2. Chronic alcoholism. 3. Chronic usage of Xanax, 4. Chronic smoking. 5. Nonreactive nonstress test. 6. Biophysical profile 6 out of 8 and non-reassuring heart tones. 7. Previous section. 8. Baby boy, score 6 at one minute and 8 at five minutes. OPERATIVE PROCEDURE: Repeat low segment transverse section. SURGEON: Kaitlyn Jade MD TEST AND BALANCE ENGINEER: Nessa Bhat MD ANESTHESIOLOGIST: Mary Trammell MD ANESTHESIA: Spinal. OPERATIVE PROCEDURE: The patient was given a spinal anesthesia, placed in the supine position. The abdomen was prepped and draped and a Card catheter was placed in the bladder. An elliptical incision was made around the previous old scar and the scar was removed and the abdominal cavity was entered. The bladder flap was made. The uterus was cut, the lower transverse incision was made, and the amniotic fluid was with marked meconium. The presentation found was transverse and the baby's breech was brought out through the incision and delivered as a breech presentation. The cord was clamped and cut. The baby was handed over to the neonatology team. A piece of the cord was sent for cord pH. The cord blood was obtained and the placenta was removed. The uterus was swabbed out. The cervix was opened with a ring forceps and the cavity was cleaned out and closed in 2 layers using number 1 Monocryl continuous suture imbedded in the first line of suture. The area was covered with Interceed and some lysis of adhesions were done of the omentum. The uterus was normal. The ovaries and tubes were normal. The abdominal cavity was cleaned out and the peritoneum was closed with a 2-0 Vicryl suture. The fascia was closed with a number 0-PDS loop suture. The subcutaneous tissue was closed with a 2-0 Vicryl and 3-0 Monocryl subcuticular to the skin. Dermabond and Steri- Strips were applied. The patient tolerated the procedure well and left the OR awake and stable. Sponge counts and instrument counts were correct. Intravenous antibiotics were given for prophylaxis. Dictated By: Kaitlyn Jade MD /yvon/surjit /Document#: [id number]
[2016-12-07 04:07] LABS: ADD UMIC YES; UR AMORPHOUS CRYSTAL FEW /HPF (NONE SEEN); UR ASCORBIC ACID NEGATIVE (NEGATIVE); UR BACTERIA FEW /HPF (NONE SEEN); UR BILIRUBIN (Dip) NEGATIVE (NEGATIVE); UR BLOOD (Dip) NEGATIVE (NEGATIVE); UR CLARITY CLOUDY (CLEAR); UR COLOR AMBER (YELLOW); UR GLUCOSE (Dip) NEGATIVE (NEGATIVE); UR KETONES (Dip) TRACE mg/dL (NEGATIVE); UR LEUKOCYTE ESTERASE (Dip) 1+ Leu/ul (NEGATIVE); UR MUCUS MANY /HPF (NONE SEEN); UR NITRITE (Dip) NEGATIVE (NEGATIVE); UR RBC 1 /HPF (0-5); UR SQUAMOUS EPITHELIAL CELL FEW /HPF (FEW); UR TOTAL PROTEIN (Dip) 1+ mg/dl (NEGATIVE); UR UROBILINOGEN (Dip) 1+ mg/dL (NEGATIVE)
[2016-12-07 06:31] VITALS: BP 137/91; PULSE 98; RESP 18
[2016-12-07] MEDS: LACTATED RINGER'S 1,000 ML IV SCH ×3 (06:55→17:36)
[2016-12-07] MEDS: CEFAZOLIN 2 GM/50 ML (PMX) 50 ML IV SCH ×2 (06:55→17:35)
[2016-12-07 08:00] VITALS: BP 124/87; PULSE 106; RESP 18
[2016-12-07] MEDS: SENNA/DOCUSATE NA (8.6MG/50MG) TAB PO SCH ×2 (09:00→21:00)
--- NOTE | 2016-12-07 10:41 | HPN ---
Date/Time of Note Date/Time of Note DATE: 12/07/16 TIME: 10:41 Interval H&P Admission Note Pt. seen H&P reviewed: No system changes SOFIA ZABALA MD Dec 07, 2016 10:41
--- NOTE | 2016-12-07 10:42 | PN ---
Date/Time of Note Date/Time of Note DATE: 12/07/16 TIME: 10:41 Assessment/Plan Lines/Catheters IV Catheter Type (from Nrsg): Peripheral IV Subjective 24 Hr Interval Summary doing well.pain is controlled incision is dry Constitutional: BM, ambulates, flatus, improved, no complaints, urine output Feeding: advancing diet Detailed Summary Eyes: no complaints ENT: no complaints Respiratory: no complaints Cardiovascular: no complaints Gastrointestinal: no complaints Genitourinary: no complaints Musculoskeletal: no complaints Skin: no complaints Neurologic: no complaints Endocrine: no complaints Lymphatic: no complaints Psychological: nl mood/affect, no complaints Immunologic: no complaints Exam/Review of Systems Vital Signs Vitals Vital Signs Date Time Temp Pulse Resp B/P Pulse Ox O2 Delivery O2 Flow Rate FiO2 12/07/16 09:52 95 21 12/07/16 08:00 98.1 106 18 124/87 Room Air Intake and Output 12/06/16 12/06/16 12/07/16 14:59 22:59 06:59 Intake Total 175 ml 800 ml Output Total 350 ml Balance 175 ml 450 ml Exam Constitutional: alert, oriented, well developed Psych: nl mood/affect, no complaints Head: atraumatic, normocephalic Eyes: EOMI, nl conjunctiva, nl lids, nl sclera ENMT: mucosa pink and moist, nl external ears & nose, nl lips & teeth, nl nasal mucosa & septum Neck: non-tender, supple Respiratory: clear to auscultation, normal air movement Cardiovascular: nl pulses, regular rate and rhythm Gastrointestinal: nl liver, spleen, non-tender, soft Musculoskeletal: nl extremities to inspection, nl gait and stance Extremities: normal pulses Neurological: FABRICATION SUPERVISOR II-XII intact, nl mental status, nl speech, nl strength Skin: nl turgor, rash or lesions Lymph: nl lymph nodes Results Result Diagram: 12/06/16203712/06/162037 SOFIA ZABALA MD Dec 07, 2016 10:42
[2016-12-07] MEDS ORDERED: BISACODYL (EC) 5 MG TAB PO ONE (11:00)
[2016-12-07 11:27] LABS: BASOPHIL # 0.1 10^3/ul (0.0-0.1); BASOPHILS % 0.3 % (0.0-2.0); EOSINOPHILS # 0.1 10^3/ul (0.0-0.5); EOSINOPHILS % 0.7 % (0.0-7.0); HEMATOCRIT 28.7 % (37.0-47.0); HEMOGLOBIN 9.7 g/dl (12.0-16.0); LYMPHOCYTES # 1.7 10^3/ul (0.8-2.9); LYMPHOCYTES % 9.9 % (15.0-51.0); MEAN CORPUSCULAR HEMOGLOBIN 31.3 pg (29.0-33.0); MEAN CORPUSCULAR HGB CONC 33.8 g/dl (32.0-37.0); MEAN CORPUSCULAR VOLUME 92.6 fl (82.0-101.0); MEAN PLATELET VOLUME 10.8 fl (7.4-10.4); MONOCYTE # 1.1 10^3/ul (0.3-0.9); MONOCYTES % 6.5 % (0.0-11.0); NEUTROPHIL # 13.9 10^3/ul (1.6-7.5); NEUTROPHILS % 82.1 % (39.0-77.0); PLATELET COUNT 340 10^3/UL (140-415); WHITE BLOOD COUNT 16.9 10^3/ul (4.8-10.8)
[2016-12-07 12:00] VITALS: BP 125/75; PULSE 111; RESP 20
--- NOTE | 2016-12-07 15:04 | RADRPT ---
Vent Rate: 100 bpm RR Interval: 0 msec VA Interval: 158 msec QRS Duration: 80 msec QT Interval: 380 msec QTC Interval: 490 msec P-R-T [place]: 61 - 75 - -15 degrees Normal sinus rhythm Septal infarct , age undetermined Abnormal ECG Electronically Signed By: Kg Graham [id number]
[2016-12-07 16:00] VITALS: BP 130/79; PULSE 105
[2016-12-07 19:30] VITALS: BP 113/76; PULSE 104; RESP 18
[2016-12-07] MEDS: ACETAMINOPHEN/CODEINE #3 TAB PO PRN (23:16)
[2016-12-07] MEDS ORDERED: ACETAMINOPHEN/CODEINE #3 TAB PO PRN (23:26)
[2016-12-08 04:00] VITALS: BP 136/75; PULSE 112; RESP 19
[2016-12-08] MEDS: IBUPROFEN 800 MG TAB PO SCH ×2 (06:01→12:20)
[2016-12-08] MEDS: SENNA/DOCUSATE NA (8.6MG/50MG) TAB PO SCH ×2 (09:00→20:59)
[2016-12-08 09:45] VITALS: BP 138/76; PULSE 97; RESP 24
[2016-12-08] MEDS: ACETAMINOPHEN/CODEINE #3 TAB PO PRN ×4 (09:51→23:29)
[2016-12-08 11:28] LABS: RUBELLA ANTIBODY - IGG 1.54 index
[2016-12-08 12:00] VITALS: BP 132/78; PULSE 99; RESP 20
[2016-12-08 16:50] VITALS: BP 140/82; PULSE 89; RESP 18
[2016-12-08 20:40] VITALS: BP 151/94; PULSE 110; RESP 17
--- NOTE | 2016-12-08 20:44 | PN ---
Date/Time of Note Date/Time of Note DATE: 12/08/16 TIME: 20:38 OB Subjective Subjective Subjective had b.m c/o incisional pain OB Objective Objective Objective AFEBRILE B.P 110-140/75/80'S ABDOMEN SOFT WOUND DRY LOCHIA MIN CALF NEG FOR TENDERNESS OB Assessment/Plan Other Assessment: STABLE pod#2 Other plan: ABDOMINAL BINDER D/S HOME IN AM RYAN WILCOX MD Dec 08, 2016 20:44
[2016-12-08] MEDS: IBUPROFEN 600 MG TAB PO SCH ×2 (20:57→23:26)
[2016-12-08 23:45] VITALS: BP 136/86; PULSE 109; RESP 15
--- NOTE | 2016-12-09 02:41 | NSTRPT ---
NST Information Datetime Report Generated by CPN: 12/09/2016 02:40 Datetime: 12/06/2016 15:49 NST Information EGA: 36.5 Test Number: 1 Time on Monitor: 12/06/2016 15:54 Time off Monitor: 12/06/2016 16:27 NST Duration (Min): 33 Reason for NST: Other Reason for NST Other: Hx of drug use during Test and Monitor Explained: Monitor Explained; Test Explained; Verbalized Understanding Pulse: 110 Resp: 17 SBP: 116 DBP: 62 Test Evaluation NST Interventions: PO Hydration; Food Given; Reposition Patient; Acoustic Stimulation Patient States Movement: Present Contraction Frequency: NONE FHR Baseline : 145 Variability: Moderate 6-25bpm Accelerations: None Decelerations: None FHR Category: Category I NST Results: Non-Reactive Comments: Pt to U/S, TATO 25.1cm, breech, BPP 6/8 Dr. Irving reviewed strip and recommended for patient to be delivered. Report given to Dr. Maile stringer by Kimberly Hamilton RN. Dr. Jade spoke via phone with patient and advise her to go to Labor and Delivery for Repeat C/section. Pt is scheduled in L_D for tonite at 2100 for C/section at 2300. Explained to Patient plan of car e. Patient states understanding. No furhter questions asked. Comments: Pt to U/S, TATO 25.1cm, BPP 6, breech Electronically Signed By E-Signature: with User ID: [id number]
[2016-12-09] MEDS: ACETAMINOPHEN/CODEINE #3 TAB PO PRN (04:11)
[2016-12-09 04:30] VITALS: BP 131/80; PULSE 100; RESP 16
[2016-12-09] MEDS: IBUPROFEN 600 MG TAB PO SCH ×2 (05:29→12:17)
[2016-12-09 07:30] VITALS: BP 132/86; PULSE 106; RESP 18
[2016-12-09] MEDS ORDERED: DIPHTH/TET/ACEL PERTUSS (ADULT) 0.5 ML VIAL IM* ONE (09:00)
[2016-12-09] MEDS ORDERED: MEASLES,MUMPS,RUBELLA VACCINE INJ SC* ONE (09:00)
[2016-12-09] MEDS: SENNA/DOCUSATE NA (8.6MG/50MG) TAB PO SCH (09:00)
--- NOTE | 2016-12-09 09:15 | DS ---
Date/Time of Note Date/Time of Note DATE: 12/09/16 TIME: 09:13 Obstetrical Discharge Record Final Diagnosis Final Diagnosis: Term delivered Section Section: Repeat Complications Augmentation: No Induction: No Condition on Discharge Physical Assessment Last Vitals: vss afebrile Voiding: Yes Bowel Movement: Yes Breast: Soft, non-tender Fundus: Firm Abdomen and Incision: wound healing ok Calf Tenderness: No Patient Condition: Stable RYAN WILCOX MD Dec 09, 2016 09:15
== END 2016-12-09 15:24 | disposition home or self-care (01) | DRG 766 ==
LOC: L-D 17:15 → PP1 12-07 03:18 → EDSTATUS 12-11 17:40
PROVIDERS: ADMIT Obstetrics & Gynecology; ATTEND Obstetrics & Gynecology
PROC: 10D00Z1 Extraction of Products of Conception, Low, Open Approach (ICD-10-PCS; principal; 2016-12-06 23:45)
DX: O34.211 Maternal care for low transverse scar from previous cesarean delivery (principal); E66.01 Morbid (severe) obesity due to excess calories; O99.214 Obesity complicating childbirth; Z68.34 Body mass index [BMI] 34.0-34.9, adult; O99.02 Anemia complicating childbirth; O16.4 Unspecified maternal hypertension, complicating childbirth; Z37.0 Single live birth; Z3A.39 39 weeks gestation of pregnancy
CPT/HCPCS: 36415; 36600; 80053; 80307; 81001; 82803; 84560; 85025; 85610; 85730; 86592; 86703; 86762; 86850; 86900; 86901; 87340; 88307; 90715; 93005; 94760; 99464; J0690; J1885; J2274; J2370; J2405; J2590; J2765; J3010; J7120